=== PATIENT | male | born 1965 | race African-American/Black ===

== ENCOUNTER 2017-03-16 14:36 | Emergency (ER) | payer SELFPAY ==
[~2017-03-16] VITALS: Ht 172.7 cm; Wt 81.6 kg
[2017-03-16 14:41] VITALS: BP 102/63
[2017-03-16] MEDS ORDERED: Acetaminophen 500mg (ES) tab ORAL ONE (14:45)
--- NOTE | 2017-03-16 14:49 | Emergency Room Report ---
History of Present Illness General Chief Complaint: Headache Source: Patient, Medical Record Present Illness HPI Patient is a 51-year-old male who presented after increased headache. This reported having recent fall trying to be seated on a bench. The patient reported injuring his face. He reports having a loss of consciousness. He reported having some pain to his right knee. He denies any malocclusion he denies neck pain. Allergies: Coded Allergies: BENZTROPINE (Verified Allergy, Unknown, 03/16/17) HALOPERIDOL (Verified Allergy, Unknown, 03/16/17) Patient History Past Medical History: see triage record Reviewed Nursing Documentation: PMH: Agreed, PSxH: Agreed Nursing Documentation-PMH Hx Hypertension: Yes History Of Psychiatric Problem: Yes Review of Systems All Other Systems: negative except mentioned in HPI Physical Exam Vital Signs Date Time Temp Pulse Resp B/P (MAP) Pulse Ox O2 Delivery O2 Flow Rate FiO2 03/16/17 14:32 98.2 90 16 138/78 99 Room Air Sp02 EP Interpretation: reviewed, normal General Appearance: normal inspection, well appearing, no apparent distress, alert, GCS 15 Head: atraumatic ENT: normal ENT inspection, hearing grossly normal, normal voice Neck: normal inspection, full range of motion, supple, no bony tend Respiratory: normal inspection, lungs clear, normal breath sounds, no respiratory distress, no retraction, no wheezing Cardiovascular #1: regular rate, rhythm, no edema Gastrointestinal: normal inspection, normal bowel sounds, non tender, soft, no guarding, no hernia Genitourinary: no CVA tenderness Musculoskeletal: normal inspection, back normal, normal range of motion, swelling - right knee deformity, no effusion, no skin abrasion Neurologic: normal inspection, alert, oriented x3, responsive, 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 Differential diagnosis included was not limited to neck fracture, CVA, close head injury, syncopal episode, basilar ischemia. Because of complexity of patient's case imaging studies were ordered.A CT imaging of the head read by radiology showed soft tissue swelling without evidence of acute hemorrhage or CVA. Patient was noted to have increased pain to his right knee. X-ray imaging 3 views of the right knee interpreted by me showed chronic degenerative changes and postsurgical changes without evident fracture. There is markedly arthritic changes. The patient is advised to follow up with primary care doctor in 1-2 days. Patient is advised to return if any worsening condition or if any changes in status that are concerning. Other X-Ray Diagnostic Results Other X-Ray Diagnostic Results : # of Views/Limited Vs Complete: 3 View Indication: Pain EP Interpretation: Yes Interpretation: no dislocation, no soft tissue swelling, no fractures Impression: No acute disease Electronically Signed by: Electronically signed by Dr. Surjit Luo M.D. Last Vital Signs Date Time Temp Pulse Resp B/P (MAP) Pulse Ox O2 Delivery O2 Flow Rate FiO2 03/16/17 14:41 98.2 98 19 102/63 100 Room Air Status: improved Disposition: HOME, SELF-CARE Condition: Stable Scripts Acetaminophen (Acetaminophen) 500 Mg Tablet 500 MG PO Q4HR for For Pain, #30 TAB Prov: Surjit Luo 03/16/17 Surjit Luo Mar 16, 2017 14:48
[2017-03-16] MEDS ORDERED: ACETAMINOPHEN500 M5 PO (17:27)
[2017-03-16 17:35] VITALS: BP 104/62
--- NOTE | 2017-03-17 09:39 | Diagnostic Imaging Report ---
Indication: Pain Comparison: None Technique: Contiguous helical CT images through the brain was performed without intravenous contrast. Axial, coronal and sagittal reconstructions were reformatted. CT dose: Total DLP 1333 mGycm, CTDI volume 70.4 mGy Findings: There is no acute intracranial hemorrhage or infarct. No mass, mass effect or midline shift is identified. Ventricles and sulci are within normal limits. No extra-axial fluid collections are seen. Bony calvarium is intact. Mastoid air cells and visualized paranasal sinuses are clear. Small left scalp hematoma is noted. Impression: No acute intracranial abnormalities. Small left scalp hematoma. The CT scanner at [facility] is accredited by the [employer] and the scans are performed using protocols designed to limit radiation exposure to as low as reasonably achievable to attain images of sufficient resolution adequate for diagnostic evaluation.
--- NOTE | 2017-03-17 09:43 | Diagnostic Imaging Report ---
Indication: Pain Comparison: None Findings: 3 views of the right knee are obtained. There is prior ORIF of the proximal right tibia with fixation plate and multiple screws along the lateral side of the tibia. There is extensive heterotopic bone formation along the plate as well as along the medial aspect of the left knee. No definite fracture or dislocation is identified. Exam is limited due to positioning of the patient (patient was uncooperative ). Extensive degenerative changes are seen at the knee joint. A suprapatellar effusion is present. No bony destructive lesions are seen. No hardware failure. Soft tissues are normal. Impression: Prior ORIF of the right tibia as described above. 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 No definite fracture or dislocation. Suprapatellar effusion.
== END 2017-03-16 17:35 | disposition home or self-care (01) ==
LOC: EDBD 14:36 → EMR 15:00
DX: R51 Headache (principal); S00.83XA Contusion of other part of head, initial encounter; W19.XXXA Unspecified fall, initial encounter; Y92.89 Other specified places as the place of occurrence of the external cause; M17.11 Unilateral primary osteoarthritis, right knee
CPT/HCPCS: 70450; 99283